=== PATIENT | male | born 1985 | race Hispanic/Latino ===

== ENCOUNTER 2018-10-28 07:29 | Emergency (ER) | payer SELFPAY ==
[2018-10-28 07:43] VITALS: BMI 32.1
[2018-10-28 07:44] VITALS: PULSE 76; RESP 17; TEMP 98.3; O2SAT 98
[2018-10-28] MEDS ORDERED: Lidocaine 2% Jelly (Uro-Jet) ONE (08:17)
--- NOTE | 2018-10-28 08:20 | ED PDOC ---
HPI: Male Pain Time Seen by Provider: 10/28/18 07:50 Chief Complaint (Nursing): Male Genitourinary Chief Complaint (Provider): Male Genitourinary History Per: Patient History/Exam Limitations: no limitations Onset/Duration Of Symptoms: Days (x6-7) Current Symptoms Are (Timing): Still Present Additional Complaint(s): Ambrosio Schmid is a 32 year old male presenting for evaluation of groin pain x6-7 days. Patient reports a history of fungal infections in his groin and states he typically treats his symptoms with Clotrimazole ointment. Patient states the area has been red and itchy for the past 6-7 days and his symptoms were note relieved with Clotrimazole. Patient states today he used a Hydrocortisone cream in the area and had an acute intense burning sensation in the area. Patient reports subsequently using A&D ointment and experienced more pain in the area. Patient describes his current pain as a burning and throbbing sensation. Patient denies any concern for STDs. Patient otherwise denies any fevers, chills, nausea, vomiting, urinary complaints, or abdominal pain. Of note, patient states he recently moved from [place], [place]. PMD: None Past Medical History Reviewed: Historical Data, Nursing Documentation, Vital Signs Vital Signs: Last Vital Signs Temp 98.3 F 10/28/18 07:43 Pulse 76 10/28/18 07:43 Resp 17 10/28/18 07:43 BP 143/95 H 10/28/18 07:43 Pulse Ox 98 10/28/18 07:43 - Medical History PMH: No Chronic Diseases - Surgical History Other surgeries: Left labral tear repair - Family History Family History: States: Unknown Family Hx - Home Medications Home Medications: Ambulatory Orders Medication Instructions Recorded Mupirocin 2% Ointment [Bactroban 1 appl EXT TID #1 tube 10/28/18 Ointment] Terbinafine HCl [Lamisil At] 30 gm TP BID #30 cream..g. 10/28/18 - Allergies Allergies/Adverse Reactions: Allergies Allergy/AdvReac Type Severity Reaction Status Date / Time Penicillins Allergy RASH Verified 10/28/18 07:54 Review of Systems ROS Statement: Except As Marked, All Systems Reviewed And Found Negative Constitutional: Negative for: Fever, Chills Gastrointestinal: Negative for: Nausea, Vomiting, Abdominal Pain Genitourinary Male: Positive for: Other (groin pain). Negative for: Dysuria, Frequency, Incontinence, Hematuria, Penile Discharge Physical Exam - Reviewed Nursing Documentation Reviewed: Yes Vital Signs Reviewed: Yes - Physical Exam Appears: Positive for: Non-toxic, No Acute Distress Head Exam: Positive for: ATRAUMATIC Skin: Positive for: Normal Color, Warm Eye Exam: Positive for: Normal appearance Neck: Positive for: Normal Male Genital Exam: Positive for: normal genitalia, other (tenderness at the base of the scrotum with right more tender than left, erythema and mascerated skin noted, (-) discharge) Neurologic/Psych: Positive for: Alert, Oriented (x3) - ECG O2 Sat by Pulse Oximetry: 98 (RA) Pulse Ox Interpretation: Normal Medical Decision Making Medical Decision Makin: Impression: Fungal dermatitis, superficial bacterial infection Plan: -Lidocaine 2% gel Scribe Attestation: Documented by Eddie Marie, acting as a scribe for Lety Matute MD. Provider Scribe Attestation: All medical record entries made by the Scribe were at my direction and personally dictated by me. I have reviewed the chart and agree that the record accurately reflects my personal performance of the history, physical exam, medical decision making, and the department course for this patient. I have also personally directed, reviewed, and agree with the discharge instructions and disposition. Disposition - Clinical Impression Clinical Impression: Fungal dermatitis - Disposition Referrals: [facility] [Outside] [facility] [Outside] [facility] [Outside] Disposition Time: 08:15 Condition: STABLE Prescriptions: Mupirocin 2% Ointment [Bactroban Ointment] 1 appl EXT TID #1 tube Terbinafine HCl [Lamisil At] 30 gm TP BID #30 cream..g. Instructions: Huseyin Spears (DC) Forms: [employer] ([place]oc[place])
[2018-10-28] MEDS: Lidocaine 2% Jelly (Uro-Jet) TOP STA (08:35)
[2018-10-28 09:08] VITALS: BP 132/87
== END 2018-10-28 08:55 | disposition home or self-care (01) ==
LOC: H.ER 07:29
DX: B35.6 Tinea cruris (principal); Z88.0 Allergy status to penicillin